=== PATIENT | male | born 1985 | race Caucasian/White ===

== ENCOUNTER 2018-09-07 16:50 | Emergency (ER) | payer OTHER ==
[2018-09-07] MEDS ORDERED: predniSONE TAB* 20 MG PO ONE (18:39)
[2018-09-07] MEDS ORDERED: Baclofen TAB* 20 MG PO ONE (18:39)
[2018-09-07] MEDS ORDERED: Ibuprofen TAB* 800 MG PO ONE (18:39)
--- NOTE | 2018-09-07 18:57 | ED ---
Back Pain - HPI Summary HPI Summary: the patient is a 33-year-old male with no significant PMH presenting to the ED with right-sided low back pain radiating to the right anterior upper thigh and posterior thigh. He states pain was acute onset immediately following a cough which occurred approximately at 3 PM (approximately 1.5 hours prior to arrival. ) He has never had anything like this before. He denies any numbness or tingling, denies any bladder or bowel dysfunction. He denies any tenderness directly over the cervical, thoracic or lumbar spine. He denies any weakness. He endorses pain at 10/10, constant and stabbing. Nothing makes the pain better or worse. Positioning does not worsen or improve the pain. - History of Current Complaint Chief Complaint: EDBackInjuryPain Stated Complaint: LOWER BACK PAIN Time Seen by Provider: 09/07/18 17:51 Hx Obtained From: Patient Onset/Duration: Sudden Onset Onset/Duration: Started Hours Ago Timing: Constant Back Pain Location: Is Discrete @ - right lower back pain with radiation to the R anterior and posterior thigh Pain Intensity: 6 Character: Aching Aggravating Symptom(s): Movement Alleviating Symptom(s): Nothing Associated Signs And Symptoms: Negative: Swelling, Redness, Weakness, Numbness, Tingling, Abdominal Pain, Bladder Incontinence, Bowel Incontinence - Risk Factors AAA Risk Factors: Negative TAD Risk Factors: Negative Cauda Equina Risk Factors: Negative Epidural Abscess Risk Factors: Negative - Allergies/Home Medications Allergies/Adverse Reactions: Allergies Allergy/AdvReac Type Severity Reaction Status Date / Time raspberry Allergy Hives Verified 09/07/18 16:54 PMH/Surg Hx/FS Hx/Imm Hx Previously Healthy: Yes - Immunization History Hx Pertussis Vaccination: No Immunizations Up to Date: Yes Infectious Disease History: No Infectious Disease History: Denies: Traveled Outside the [place] in Last 30 Days - Social History Occupation: Employed Full-time Lives: With Family Alcohol Use: None Hx Substance Use: No Substance Use Type: Reports: None Hx Tobacco Use: Yes Smoking Status (MU): Never Smoked Tobacco Review of Systems Negative: Fever, Chills, Fatigue, Skin Diaphoresis Negative: Palpitations, Chest Pain Negative: Shortness Of Breath, Cough Negative: Abdominal Pain, Vomiting Genitourinary: Negative Positive: no symptoms reported, see HPI Positive: Myalgia - right lower back pain with radiation to the R anterior and posterior thigh. Negative: Arthralgia Skin: Negative Neurological: Negative All Other Systems Reviewed And Are Negative: Yes Physical Exam Triage Information Reviewed: Yes Vital Signs On Initial Exam: Initial Vitals Temp Pulse Resp BP Pulse Ox 98.5 F 91 20 137/99 97 09/07/18 16:52 09/07/18 16:52 09/07/18 16:52 09/07/18 16:52 09/07/18 16:52 Vital Signs Reviewed: Yes Appearance: Positive: Well-Appearing, Well-Nourished, Pain Distress Skin: Positive: Skin Color Reflects Adequate Perfusion Head/Face: Positive: Normal Head/Face Inspection Eyes: Positive: EOMI, TIM, Conjunctiva Clear Neck: Positive: Supple, No Lymphadenopathy Respiratory/Lung Sounds: Positive: Clear to Auscultation, Breath Sounds Present Cardiovascular: Positive: RRR, Pulses are Symmetrical in both Upper and Lower Extremities Musculoskeletal: Positive: Pain @ - right lower back pain Neurological: Positive: Speech Normal Psychiatric: Positive: Normal, Affect/Mood Appropriate AVPU Assessment: Alert - Suni Coma Scale Best Eye Response: 4 - Spontaneous Best Motor Response: 6 - Obeys Commands Best Verbal Response: 5 - Oriented Coma Scale Total: 15 Diagnostics - Vital Signs Vital Signs Temp Pulse Resp BP Pulse Ox 09/07/18 16:52 98.5 F 91 20 137/99 97 - Laboratory Lab Statement: Any lab studies that have been ordered have been reviewed, and results considered in the medical decision making process. Back Pain Course/Dx - Course Course Of Treatment: During the course of treatment, the patient's evaluated for right lower back pain radiating to the right anterior and posterior thigh without groin involvement. On physical examination, he is endorsing pain directly over the sciatic notch without pain to the cervical thoracic or lumbar spine. On physical examination, there is no pain on deep palpation of the spine , there is discomfort with deep palpation over the sciatic notch, however he states this is a deep pain sensation which is radiating around to the anterior and posterior thigh. He is able to move the extremity, however with pain. He denies any numbness or tingling. There is no foot drop noted. No step-off noted. Patient is ambulating well, however with discomfort. Denies any bladder or bowel dysfunction. He is given baclofen 20 mg, prednisone 60 mg and ibuprofen 800 mg. This was with little improvement. He was also given heat packs and 10 mL Marcaine using IM injection into the R lower back throughout the muscle with massage with improvement of symptoms. He states he feels "300% better" and is Ok for discharge. Patient now is ambulating well. Prednisone and baclofen prescription given. - Diagnoses Differential Diagnosis/HQI/PQRI: Positive: Strain, Sprain, Other - piriformis syndrome, lumbar radiculopathy Provider Diagnoses: Sciatic nerve pain Discharge - Sign-Out/Discharge Documenting (check all that apply): Patient Departure - Discharge Plan Condition: Stable Disposition: HOME Prescriptions: Baclofen TAB* [Lioresal TAB*] 20 mg PO TID #12 tab predniSONE TAB* [Deltasone TAB*] 50 mg PO DAILY #5 tab Patient Education Materials: Sciatica (ED), Lumbar Radiculopathy (ED), Piriformis Syndrome (ED), Lower Back Exercises (ED) Referrals: Virgen Benson, REPORTING CONSULTANT [Primary Care Provider] - Additional Instructions: I have given you information on piriformis syndrome, sciatica and lumbar radiculopathy. The type of injury you have tends to encompass all of these syndromes. You should begin to improve over several days, with heat, gentle massage and stretches Baclofen 3 times daily to relax the muscles Ibuprofen 800 mg every 6 hours Prednisone 50 mg once daily in the morning 5 days - Billing Disposition and Condition Condition: STABLE Disposition: Home
[2018-09-07] MEDS ORDERED: Bupivacaine 0.5% SDV PF* 30ML VIAL INJ ONE (19:09)
[2018-09-07 19:49] VITALS: BP 139/85
== END 2018-09-07 19:48 | disposition home or self-care (01) ==
LOC: ED 16:50
DX: M79.2 Neuralgia and neuritis, unspecified (principal); M54.5 Low back pain
CPT/HCPCS: 96374; 99282; A9270-GY; J7512